=== PATIENT | female | born 1980 | race Two or more races ===

== ENCOUNTER 2017-01-23 20:08 | Outpatient (CLI) | payer SELFPAY ==
[~2017-01-23] VITALS: Ht 149.9 cm; Wt 62.2 kg
[2017-01-23] MEDS ORDERED: PREN1TAB60 PO (21:52)
== END 2017-01-23 22:00 | disposition home or self-care (01) ==
LOC: LDOP 20:08
PROVIDERS: ATTEND Obstetrics & Gynecology
DX: Z04.1 Encounter for examination and observation following transport accident (principal); O09.523 Supervision of elderly multigravida, third trimester; Z3A.34 34 weeks gestation of pregnancy
CPT/HCPCS: 59025; 99201; G0463

== ENCOUNTER 2017-02-22 13:33 | Inpatient (IN) | payer OTHER ==
[~2017-02-22] VITALS: Ht 152.4 cm; Wt 63.6 kg
[~2017-02-22 13:33] MED LIST: PREN1TAB60 PO
[2017-02-23] MEDS ORDERED: OXYTOCIN 30U/ 0.9% NaCL 500ML 500 ML IV SCH (05:54)
[2017-02-23] MEDS ORDERED: LACTATED RINGERS 1,000 ML IV SCH ×2 (05:54→06:00)
[2017-02-23] MEDS ORDERED: METOCLOPRAMIDE 5 MG/ML, 2ML IV ONE (06:00)
[2017-02-23] MEDS ORDERED: SODIUM CITRATE/CITRIC ACID 30 ML UDC PO ONE (06:00)
[2017-02-23] MEDS ORDERED: LACTATED RINGERS 1,000 ML IVBOLUS ONE (06:00)
[2017-02-23 06:01] VITALS: BP 108/53
[2017-02-23] MEDS ORDERED: SODIUM CITRATE/CITRIC ACID 30 ML UDC ONE ×2 (06:30→07:32)
[2017-02-23] MEDS ORDERED: NEWBORN KIT ONE (06:30)
[2017-02-23] MEDS ORDERED: METOCLOPRAMIDE 5 MG/ML, 2ML ONE ×2 (06:31→07:32)
[2017-02-23] MEDS ORDERED: OXYTOCIN 30U/ 0.9% NaCL 500ML 500 ML ONE (06:31)
[2017-02-23 06:43] LABS: HEMATOCRIT 35.3 % (34.6-47.8); HEMOGLOBIN 11.9 g/dL (11.7-16.4); WHITE BLOOD COUNT 11.6 x10^3/uL (3.4-10)
[2017-02-23] MEDS ORDERED: CEFAZOLIN 1,000 MG ONE (07:32)
[2017-02-23] MEDS ORDERED: FENTANYL PF 100 MCG/2ML ONE ×2 (07:32→07:57)
[2017-02-23] MEDS ORDERED: OXYTOCIN 10 UNITS/ML, 1ML ONE (07:32)
[2017-02-23] MEDS ORDERED: EPHEDRINE 50 MG/ML, 1ML ONE (07:32)
[2017-02-23] MEDS ORDERED: KETOROLAC 30 MG/1 ML ONE (07:32)
[2017-02-23] MEDS: OXYTOCIN 30U/ 0.9% NaCL 500ML 500 ML IV SCH ×2 (08:46→18:46)
[2017-02-23] MEDS: LACTATED RINGERS 1,000 ML IV SCH ×4 (08:46→18:46)
[2017-02-23] MEDS ORDERED: morphine SULFATE 10 MG/ML, 1ML ONE (08:46)
[2017-02-23] MEDS: morphine SULFATE 10 MG/ML, 1ML IVPush PRN ×3 (08:52→09:32)
[2017-02-23] MEDS ORDERED: METHYLERGONOVINE 0.2 MG/ML IM PRN (09:00)
[2017-02-23] MEDS ORDERED: ONDANSETRON 2MG/ML, 2ML IV PRN (09:00)
[2017-02-23] MEDS ORDERED: ACETAMINOPHEN 325 MG TABLET PO PRN (09:00)
[2017-02-23] MEDS ORDERED: morphine SULFATE 10 MG/ML, 1ML IVPush PRN (09:00)
[2017-02-23] MEDS: PRENATAL VIT/IRON/FA 1 EACH TABLET PO SCH (09:00)
[2017-02-23] MEDS ORDERED: MISOPROSTOL 200 MCG TABLET PR PRN (09:00)
[2017-02-23] MEDS ORDERED: CARBOPROST TROMETHAMINE 250 MCG/ML, 1ML IM PRN (09:00)
[2017-02-23] MEDS ORDERED: MEPERIDINE/PF 50 MG/ML IVPush PRN (09:00)
[2017-02-23 10:45] VITALS: BP 98/52
[2017-02-23] MEDS: OXYcodone/APAP 5/325MG TABLET PO PRN ×2 (13:08→17:48)
[2017-02-23] MEDS: KETOROLAC 30 MG/1 ML IV SCH ×2 (15:00→20:30)
[2017-02-23 15:40] VITALS: BP 96/54
[2017-02-23 16:23] LABS: HEMATOCRIT 29.2 % (34.6-47.8); HEMOGLOBIN 9.8 g/dL (11.7-16.4); WHITE BLOOD COUNT 15.5 x10^3/uL (3.4-10)
[2017-02-23] MEDS ORDERED: DIPH,PERTUSS(ACELL),TET VAC/PF NC IM-VACC ONE ×2 (16:40→17:00)
[2017-02-23 20:00] VITALS: BP 94/55
[2017-02-24 00:15] VITALS: BP 82/48
[2017-02-24] MEDS: LACTATED RINGERS 1,000 ML IV SCH ×2 (00:46→04:46)
[2017-02-24] MEDS: OXYcodone/APAP 5/325MG TABLET PO PRN ×5 (01:59→20:35)
[2017-02-24] MEDS: KETOROLAC 30 MG/1 ML IV SCH ×3 (02:48→14:30)
[2017-02-24] MEDS: OXYTOCIN 30U/ 0.9% NaCL 500ML 500 ML IV SCH (04:46)
[2017-02-24 05:10] VITALS: BP 94/54
[2017-02-24] MEDS: DOCUSATE 100 MG CAPSULE PO PRN ×2 (07:40→20:34)
[2017-02-24] MEDS: PRENATAL VIT/IRON/FA 1 EACH TABLET PO SCH (07:40)
[2017-02-24 13:10] VITALS: BP 90/51
[2017-02-24] MEDS ORDERED: IBUPROFEN 600 MG TABLET ONE ×2 (16:18→22:53)
[2017-02-24] MEDS: IBUPROFEN 600 MG TABLET PO PRN ×2 (16:24→22:56)
[2017-02-24 19:52] VITALS: BP 95/45
[2017-02-25] MEDS: OXYcodone/APAP 5/325MG TABLET PO PRN ×5 (02:23→20:36)
[2017-02-25] MEDS ORDERED: IBUPROFEN 600 MG TABLET ONE (06:16)
[2017-02-25] MEDS: IBUPROFEN 600 MG TABLET PO PRN ×3 (06:21→20:35)
[2017-02-25] MEDS: PRENATAL VIT/IRON/FA 1 EACH TABLET PO SCH (07:37)
[2017-02-25] MEDS: DOCUSATE 100 MG CAPSULE PO PRN ×2 (07:37→20:36)
[2017-02-25 07:40] VITALS: BP 88/41
[2017-02-25 19:50] VITALS: BP 93/50
[2017-02-26] MEDS: IBUPROFEN 600 MG TABLET PO PRN ×2 (03:42→09:12)
[2017-02-26] MEDS: OXYcodone/APAP 5/325MG TABLET PO PRN ×2 (03:42→09:12)
[2017-02-26 07:40] VITALS: BP 96/48
[2017-02-26] MEDS ORDERED: OXYC-302 PO (08:34)
[2017-02-26] MEDS ORDERED: IBUP-1222 PO (08:35)
[2017-02-26] MEDS: PRENATAL VIT/IRON/FA 1 EACH TABLET PO SCH (09:00)
[2017-02-26] MEDS: DOCUSATE 100 MG CAPSULE PO PRN (09:12)
== END 2017-02-26 09:56 | disposition home or self-care (01) | DRG 765 ==
LOC: LDIP 02-23 05:53 → 2NW 02-23 10:44
PROVIDERS: ADMIT Obstetrics & Gynecology; ATTEND Obstetrics & Gynecology
PROC: 10D00Z1 Extraction of Products of Conception, Low, Open Approach (ICD-10-PCS; principal; 2017-02-23)
DX: O34.211 Maternal care for low transverse scar from previous cesarean delivery (principal); O99.354 Diseases of the nervous system complicating childbirth; O09.523 Supervision of elderly multigravida, third trimester; G43.909 Migraine, unspecified, not intractable, without status migrainosus; Z37.0 Single live birth; Z3A.39 39 weeks gestation of pregnancy
CPT/HCPCS: 36415; 85025; 86850; 86900; 90715; J0690; J1885; J3010; J2270; J2590; J2765; J7120

== ENCOUNTER → 2018-11-22 | Outpatient (CLI) | payer OTHER ==
[~2018-11-22] MED LIST changes: +IBUP-1222 PO; +OXYC-302 PO
== END | disposition home or self-care (01) ==
LOC: CFH 08:37
PROVIDERS: ATTEND Family Medicine
DX: Z12.31 Encounter for screening mammogram for malignant neoplasm of breast (principal)
CPT/HCPCS: 77067

== ENCOUNTER → 2019-05-02 | Outpatient (CLI) | payer OTHER | END | disposition home or self-care (01) | LOC: CFH 08:03 | PROVIDERS: ATTEND Obstetrics & Gynecology | DX: R92.2 Inconclusive mammogram (principal) | CPT/HCPCS: 76641 ==